=== PATIENT | male | born 1935 | race Caucasian/White ===

== ENCOUNTER 2016-09-07 22:56 | Inpatient (IN) | payer OTHER ==
--- NOTE | 2016-09-08 00:18 | PROVIDER DOCUMENTATION ---
HPI-General Adult - History of Present Illness -Gen Adult Nature of Presenting Problems: Pt comes in with complaint of anxiety. He states that he sees dr foley in [place] and has been given abx treatment x 2 different cycles of abx. He still has complaint of cough and a non specific complaint of anxiety but does not at all appear anxious. <Sol Hernández - Last Filed: 09/08/16 01:32> <Ignacio Lincoln - Last Filed: 09/08/16 02:36> <Frederick Graham - Last Filed: 09/08/16 02:39> - General Chief Complaint: Anxiety Stated Complaint: COUGH Time Seen by Provider: 09/08/16 00:11 Allergies/Adverse Reactions: Patient Allergies Allergy/AdvReac Type Severity Reaction Status Date / Time No Known Allergies Allergy Verified 09/08/16 00:10 Home Medications: Home Medication List Medication Instructions Recorded Confirmed Last Taken Type Diclofenac Sodium 75 mg PO BID 04/29/14 09/08/16 04/29/14 07:30 History Furosemide 40 mg PO DAILY 04/29/14 09/08/16 09/07/16 13:00 History Gabapentin 300 mg PO BID 04/29/14 09/08/16 09/07/16 20:00 History Losartan [Cozaar] 25 mg PO DAILY 04/29/14 09/08/16 09/07/16 09:00 History Metformin E.r. [Glucophage Xr] 500 mg PO BID CC 04/29/14 09/08/16 09/07/16 17: 00 History Omeprazole [Prilosec] 20 mg PO BID 04/29/14 09/08/16 09/07/16 17:00 History Potassium Chloride E.r. [Klor-Con] 2 tab-cap PO DAILY 04/29/14 09/08/16 09:00 History Sitagliptin [Januvia] 50 mg PO DAILY 04/29/14 09/08/16 06/27/15 History Tramadol/APAP [Ultracet 1 each PO Q6H PRN PRN #20 tablet 06/28/15 09/08/16 Unknown Rx 37.5MG/325Mg] Diltiazem HCl [Diltiazem 24Hr Cd] 180 mg PO DAILY 0209/08/16 09/07/16 09: 00 History Furosemide [Lasix] 2 tab PO DAILY 09/08/16 09/08/16 09/07/16 09:00 History Levofloxacin [Levaquin] 500 mg PO DAILY 09/08/16 09/08/16 09/07/16 09:00 History Tramadol [Ultram] 50 mg PO Q8HR 09/08/16 09/08/16 Unknown History Review of Systems - Adult - REVIEW OF SYSTEMS - ADULT Constitutional: reports: no symptoms reported. denies: chills, fever, fatique, night sweats, weight gain Eyes: reports: no symptoms reported. denies: discharge, dry eyes, decreased vision, blurred vision, double vision, eye pain, redness Ears, Nose, Mouth & Throat: reports: no symptoms reported. denies: ear discharge, ear pain, hearing loss, tinnitus, epistaxis, sinus problem, loose teeth, mouth swelling, hoarseness, throat pain, throat swelling Cardiovascular: reports: no symptoms reported. denies: chest pain, edema, heart murmur, palpitations, poor circulation, PND, syncope Respiratory: reports: see HPI, cough. denies: chronic cough, dyspnea on exertion, excessive sputum production, hemoptysis, pleurisy, shortness of breath , wheezing Gastrointestinal: reports: no symptoms reported. denies: abdominal pain, hematemesis, constipation, diarrhea, difficulty swallowing, nausea, poor appetite, rectal bleeding, vomiting Genitourinary: reports: no symptoms reported. denies: dysuria, discharge, frequency, flank pain, hematuria, hesitency, incontinence, urinary retention, urgency Musculoskeletal: reports: no symptoms reported. denies: bone pain, back pain, frequent leg cramps, joint swelling, muscle aches, neck pain Integumentary: reports: no symptoms reported. denies: hives, hair loss, itching , mole changes, nail changes, rash, skin sores/ulcer, skin thickening Neurological: reports: no symptoms reported. denies: ataxia, dizziness/vertigo , headache/migraines, numbness, paresthesia, slurred speech, syncope, tremors Psychiatric: reports: see HPI, anxiety, panic attacks. denies: anti-depressant use, alcohol/drug dependence, depression, insomnia, suicidal thoughts Endocrine: reports: no symptoms reported. denies: change in skin pigment, excessive sweating, goiter, cold intolerance, heat intolerance, increased thirst , polyuria Hematologic/Lymphatic: reports: no symptoms reported. denies: low blood count, prolonged bleeding, swollen lymph nodes, transfusions Allergic/Immunologic: reports: no symptoms reported. denies: see HPI, allergic rhinitis, asthma, eczema, frequent infections, hay fever, hives, positive PPD, urticaria All Other Systems: Reviewed and Negative <Sol Hernández - Last Filed: 09/08/16 01:32> Past History - Adult - PAST MEDICAL HISTORY-ADULT Review of Records: reports: Old Records Reviewed, Nursing Assessment Review, Medications Reviewed, Social history reviewed & non-contributory. Major Childhood Illnesses: reports: denies history Cardiovascular: reports: CHF, HTN Respiratory: reports: denies history Gastrointestinal: reports: diverticulosis, GERD, obstruction Obstetrical/Gynecological: reports: denies history Genitourinary: reports: denies history Musculoskeletal: reports: arthritis Neurological: reports: denies history Endocrine/Immune: reports: Diabetes Other Conditions: reports: denies history - PRIOR SURGERIES/PROCEDURES Surgical/Procedure History: reports: cholecystectomy, hernia repair, other ( colon resection) - PRIOR HOSPITALIZATIONS Prior Hospitalizations: reports: for other non-related - IMMUNIZATION STATUS Childhood Immunizations: See Nurse Assessment Flu Vaccine: See Nurse Assessment - FAMILY HISTORY Family History: reviewed, not pertinent - SOCIAL HISTORY Smoking: denies Substance Use: none/never Alcohol Use Frequency: never Living Situation: family <Sol Hernández - Last Filed: 09/08/16 01:32> Physical Exam-General - PHYSICAL EXAM-ADULT Initial Vital Signs Reviewed: Yes - CONSTITUTIONAL General Appearance: appears well, alert, no apparent distress, anxious (stated) - EYES Eyes: PERRL/EOMI, pink conjunctivae - HEAD, EARS, NOSE, MOUTH & THROAT HENMT: normocephalic/atraumatic, moist mucous membranes, normal ENT inspection - NECK Neck: non-tender, full range of motion, supple - RESPIRATORY Respiratory: chest non-tender, lungs clear, normal breath sounds, no pleuratic chest pain, no respiratory distress, no accessory muscle use - CARDIOVASCULAR Cardiovascular: normal peripheral pulses, regular rate, rhythm. 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 Lincoln reassessed pt and discussed result of pt's chest X- ray and labs and discussed possibility to admit pt, as pt had +3 pitting edema in bilateral lower extremities, +1 in presacrul, and pulmonary edema.) <Frederick Graham - Last Filed: 09/08/16 02:39> Departure - Departure Certified Medical Emergency: Emergent <Sol Hernández - Last Filed: 09/08/16 01:32> - Departure Time of Disposition Order: 02:36 Certified Medical Emergency: Emergent <Ignacio Lincoln - Last Filed: 09/08/16 02:36> <Frederick Graham - Last Filed: 09/08/16 02:39> - Departure DIAGNOSIS: Congestive heart failure Qualifiers: Congestive heart failure type: unspecified congestive heart failure type Congestive heart failure chronicity: acute on chronic Qualified Code(s): I50.9 - Heart failure, unspecified Disposition: ADMITTED INPATIENT 09 Condition: Good Additional Instructions: ED Follow Up Instructions: You have been treated by a care provider in the Emergency Department. These instructions are being provided to you so you can have an understanding of how to care for yourself upon discharge. Upon discharge from the Emergency Department, you are responsible for making arrangements for follow-up care by a physician of your choice. Take all prescribed medications as directed. Return to the Emergency Department immediately for any new or worsening symptoms. You may call the Physician Referral phone number at [phone] to obtain a list of Physicians who are taking new patients. Referrals: Desmond Foley [Primary Care Provider] - Attestation - Physician/ DEBRA Attestation Patient care was provided by Advanced Practice Provider:: Yes Advanced Practice Provider:: Sol Hernández Advanced Practice Provider documentation review:: The Mid-level provider documentation, treatment plan and medical decision making was reviewed by the physician who agrees with all treatment and medical decision making by the P. <Sol Hernández - Last Filed: 09/08/16 01:32> Physician Attestation
[2016-09-08] MEDS ORDERED: XANAX PO ONE ×2 (00:22→01:00)
[2016-09-08] MEDS ORDERED: LASIX IV ONE (01:26)
[2016-09-08 01:42] LABS: MANUAL DIFF NEEDED? NO
[2016-09-08 01:45] LABS: BASO% 0.6 % (0.0-0.8); EOS# 0.07 X1000 (0.0-0.7); EOS% 1.5 % (0.0-10.0); HEMATOCRIT 31.9 % (42.0-52.0); HEMOGLOBIN 9.7 g/dL (14.0-18.0); LYMPH# 0.97 X1000 (1.2-3.4); LYMPH% 20.6 % (20.5-51.1); MCH 23.2 PG (27-31); MCHC 30.4 g/dL (33-37); MCV 76.3 FL (81-99); MONO# 0.55 X1000 (0.11-0.59); MONO% 11.7 % (1.7-9.3); MPV 9.1 FL (7.4-10.4); NEUT% 65.6 % (42.2-75.2); PLT 122 X1000 (130-400); RBC 4.18 XMIL (4.7-6.1)
[2016-09-08 01:54] LABS: INR 1.13; PTT 27.3 Seconds (22.0-36.0)
[2016-09-08 02:02] LABS: AGAP 14; ALBUMIN 3.2 g/dL (3.5-5.0); ALKALINE PHOSPHATASE 101 U/L (32-122); BUN 15 mg/dL (8-22); CALCIUM 8.7 mg/dL (8.8-10.2); CHLORIDE 100 mmol/L (98-107); CK PROFILE 165 U/L (24-204); COSMO 281; GOT 25 U/L (10-34); GPT 18 U/L (10-44); MAGNESIUM 1.5 mg/dL (1.5-2.7); POTASSIUM 4.1 mmol/L (3.5-5.1); SODIUM 140 mmol/L (136-145); TCO2 26 mmol/L (25-35); TOTAL BILIRUBIN 0.77 mg/dL (0.20-1.00)
[2016-09-08 06:08] LABS: URINE CULTURE NEEDED? NO; URINE MICRO REVIEW NEEDED? NO; URINE SOURCE CATH
[2016-09-08] MEDS: NORCO-7.5 PO PRN ×2 (06:13→11:07)
[2016-09-08 06:22] LABS: BILIRUBIN URINE NEGATIVE (NEGATIVE); BLOOD URINE NEGATIVE (NEGATIVE); COLOR YELLOW; GLUCOSE URINE NEGATIVE (NEGATIVE); LEUKOCYTES URINE NEGATIVE (NEGATIVE); NITRITE URINE NEGATIVE (NEGATIVE); PH URINE 7.5; PROTEIN URINE NEGATIVE (NEGATIVE); SP GRAVITY URINE 1.011; TURBIDITY URINE CLEAR (CLEAR); UROBILINOGEN URINE NORMAL (NORMAL)
[2016-09-08 06:26] LABS: UR EPITHELIAL CELLS <10 /HPF (<10); URINE BACTERIA NEGATIVE /HPF; URINE RBC <10 /HPF (<10); URINE WBC <10 /HPF (<10)
[2016-09-08 06:35] LABS: HEMOGLOBIN A1C 5.4 % (4.8-6.0)
[2016-09-08] MEDS ORDERED: ZOFRAN IV PRN (06:52)
[2016-09-08] MEDS ORDERED: TYLENOL PO PRN (06:52)
[2016-09-08] MEDS ORDERED: CARDIZEM CD PO SCH ×3 (09:00→13:15)
[2016-09-08] MEDS ORDERED: LOVENOX SUBQ SCH (09:00)
[2016-09-08 09:18] LABS: CK PROFILE 147 U/L (24-204); IRON SATURATION 9 %; TIBC 295 ug/dL; TOTAL IRON 28 ug/dL (53-167); UNBOUND IRON 267 ug/dL (112-346)
--- NOTE | 2016-09-08 09:42 | Diag Imaging Result Document ---
PROCEDURE NAME: CHEST-1 VIEW - 09/08/2016 AP PORTABLE CHEST, 09/08/2016 AT 0035 HOURS: FINDINGS: The atelectasis previously present in the lingula has resolved. Otherwise, there has been no significant change in the appearance of the chest since 03/22/2015. IMPRESSION: Stable chest.
[2016-09-08] MEDS: LASIX IV SCH ×2 (11:03→20:34)
[2016-09-08] MEDS: NEURONTIN PO SCH ×2 (11:06→20:35)
[2016-09-08] MEDS: PRILOSEC PO SCH ×2 (11:07→20:35)
[2016-09-08] MEDS: COZAAR PO SCH (11:07)
[2016-09-08] MEDS: HUMALOG SUBQ SCH ×3 (11:08→22:15)
[2016-09-08 11:36] LABS: FERRITIN 14 ng/mL (30-400)
[2016-09-08] MEDS ORDERED: MAGNESIUM SULFATE 2 GM/S.W.I. 50 ML IV ONE (13:30)
--- NOTE | 2016-09-08 13:45 | CONSULTATION ---
DATE OF CONSULTATION: 09/08/2016 INDICATION: New onset atrial fibrillation. HISTORY OF PRESENT ILLNESS: Mr. Denson is a 80-year-old male who presented for admission yesterday he says reportedly secondary to an anxiety attack. The patient could not report any other symptoms other than he just gets somewhat agitated and anxious. He had no heart racing. No chest pain. No orthopnea. He has chronic lower extremity edema and appears to have issues with a chronic lower extremity venous ulcer that is currently being treated. He denies any orthopnea, heart racing, palpitations or syncope. He has no bleeding issues. PAST MEDICAL HISTORY: Significant for. 1. Hypertension. 2. Diabetes. 3. Chronic venous ulcers. SOCIAL HISTORY: No current tobacco use. FAMILY HISTORY: Significant for hypertension. REVIEW OF SYSTEMS: A 10-system review of systems is negative except for those things mentioned in HPI. PHYSICAL EXAMINATION: Vital signs: He is afebrile. His heart rate is 78, blood pressure 129/58. His heart rates have been elevated since admission primarily in the 100s-120s. Generally: No acute distress. HEENT: Oropharynx is moist. Normal dentition. Eye examination shows pink conjunctivae. White sclerae. Neck: Examination shows no obvious thyromegaly or thyroid tenderness. Cardiovascular: He is in irregularly irregular tachycardic rhythm. Currently he is going at a rate of around 140. He has 1 to 2+ bilateral lower extremity with chronic venous stasis changes and a healing venous stasis ulcer on the right lower medial bergman and evidence for a healed venous stasis ulcer on the left medial lower bergman. Chest: Clear bilaterally. No increased work of breathing. Abdomen: Soft, nontender, nondistended. No obvious organomegaly. Skin Exam: Warm and dry throughout any rashes. Neurological: Moving all extremities well. Cranial nerves 2-12 are intact without any sensation deficits. Psychiatric: Alert and oriented, pleasant. Normal mood and affect. PERTINENT DATA: His EKG today showed what appears to be atrial flutter, rate of 108 beats per minute. His chest x-ray demonstrated no evidence of any pulmonary edema. Unremarkable study. Laboratory shows a white count of 4.7, hematocrit 31.9, platelet count is 122,000. This has been relatively stable as he had platelet counts in the 120s in April 2014. His INR is 1.1. His sodium is 140, potassium 4.1, his BUN is 15, creatinine is 1. His cardiac enzymes are negative times multiple sets. His proBNP is 1182. He did not have a TSH checked. ASSESSMENT: New onset atrial flutter with evidence for heart failure based on his proBNP. PLAN: We will continue him on his current diltiazem. I will discontinue his aspirin that he was previously on. In addition, I will discontinue his enoxaparin. We will start him on apixaban 5 mg b.i.d. Risks, benefits and alternatives to anticoagulation were discussed with the patient. He agrees to proceed. We will plan for KARIE cardioversion in the morning. Risks, benefits, and alternatives to procedure were explained and he agreed to proceed. If he has unremarkable cardioversion then he can likely be discharged later on today or later on tomorrow. I would continue to work on his rate control. I will escalate his diltiazem to 240 mg daily. Consideration for pipe changer to a beta-tatum if his EF on the transesophageal echocardiogram is reduced.
--- NOTE | 2016-09-08 14:09 | ECHO REPORT ---
ORDER DATE: 09/08/2016 INDICATION FOR THE STUDY: CHF. Edema. FINDINGS: 1. Right atrium is moderately enlarged at 5.3 cm. 2. There is mild tricuspid regurgitation. RV systolic pressure of 43. 3. Normal RV size and systolic function. 4. Trace pulmonic insufficiency. 5. Mild left atrial enlargement at 4.8 cm. 6. There is no evidence of mitral prolapse. No significant mitral regurgitation. 7. Normal LV size, end-diastolic dimension of 3.9. Moderate left ventricular hypertrophy with a posterior and interventricular septal wall thickness 1.4 cm each. Normal LV systolic function. The estimated EF is greater than 55%. This is an extremely difficult study with poor visualization of the endocardial borders. 8. Aortic valve appears calcified. There is no evidence of restriction in motion via the aortic valve area or via gradients but this is very difficult imaging. May consider re-study in the future. Consideration for possible transesophageal echocardiogram to better assess the aortic valve. 9. Aorta appears normal in visualized segments. 10. No pericardial effusion identified.
--- NOTE | 2016-09-08 15:47 | HISTORY AND PHYSICAL ---
PRIMARY CARE PROVIDER: Dr. Otoole. CHIEF COMPLAINT: Anxiety attack and lower extremity edema. HISTORY OF PRESENT ILLNESS: Mr. Denson is an 80-year-old male with a past medical history of diabetes mellitus, hypertension, chronic venous insufficiency, iron deficiency anemia, and a reported irregular hear beat; the patient does not know what kind. The patient presented to the ER tonight stating that he was having an anxiety attack. Once the patient was further assessed, he was found to be having some shortness of breath and did have bilateral lower extremity pitting edema. The patient reports that he has recently been treated with 2 different rounds of antibiotics for reported upper respiratory infection and does report a productive cough with a clear to slight grayish colored sputum. The patient's primary care physician is Dr. Otoole in [place]. He states that he does not have a survey statistician and does not have any known history of congestive heart failure, though the patient is supposed to take 80 mg of Lasix p.o. daily. Upon further evaluation, we did discover that the patient reported that he has not taken his medications for the past 3 days. He also reports that he is being seen by home health for wound care for a right lower extremity diabetic wound. He denies, at this time, any dizziness, headaches, chest pain, abdominal pain, nausea, vomiting, diarrhea, or constipation. He reports that his last bowel movement was 1 day ago. He denies any melena. He also denies any dysuria, urinary frequency, or any reduction in his urinary output. The patient does report that he has had increased leg swelling over the past few days as well. Upon evaluation in the ER, the patient was found to have 2+ pitting edema in bilateral lower extremities. Chest x-ray did show increased pulmonary vascular condition. The patient's proBNP was elevated at 1182. The patient was given 40 mg Lasix IV and did have urine output so far of 2500 mL. EKG was performed in the ER, which did show the patient was in atrial flutter at a rate of around 111. I did ask the patient if he has a known history of this, though he states that he thinks someone has told him he has had an irregular heart rate in the past. The patient does take Cardizem on his home medication list. I did look back at previous EKGs and I have no EKGs showing atrial flutter in the past. At this time, we are not sure if this is of new onset or not. At this time, we will admit the patient for further treatment and evaluation of his congestive heart failure, as well as atrial flutter. We will obtain a cardiology consult as well. REVIEW OF SYSTEMS: A 14-point review of systems was conducted with the patient and all were negative except for pertinent positives mentioned in the above HPI. PAST MEDICAL HISTORY: 1. Diabetes mellitus type 2. 2. Hypertension. 3. Chronic venous insufficiency. 4. Iron deficiency anemia. PAST SURGICAL HISTORY: 1. Exploratory laparotomy with lysis of adhesions. 2. Hernia repair 3. Cholecystectomy FAMILY HISTORY: Positive for coronary artery disease in his father, who is . SOCIAL HISTORY: The patient denies any past or present tobacco use, though does report some alcohol use in his distant past. The patient reports that he currently lives alone at this time, though does have a son that lives close by that helps with his care. ALLERGIES: The patient reports no known allergies. HOME MEDICATIONS: 1. Diclofenac 75 mg p.o. b.i.d. 2. Diltiazem 24 hour controlled dose, 180 mg p.o. daily. 3. Lasix 80 mg p.o. daily. 4. Gabapentin 300 mg p.o. b.i.d. 5. Levaquin 500 mg p.o. daily. 6. Cozaar 25 mg p.o. daily. 7. Metformin extended release 500 mg p.o. b.i.d.. 8. Omeprazole 20 mg p.o. b.i.d. 9. Potassium chloride extended release 2 tablets p.o. daily. 10.Januvia 50 mg p.o. daily. 11.Tramadol 50 mg p.o. q.8 hours. DIAGNOSTIC DATA AND LABORATORY RESULTS: White blood cell count 4.7, red blood cell count 4.1, hemoglobin 9.7, hematocrit 31.9, platelet count 122. PT 12, INR 1.13, PTT 27.3, sodium 140, potassium 4.1, chloride 100, bicarb 26, BUN 15, creatinine 1.0. GFR greater than 60, glucose 107, hemoglobin A1c 5.4, calcium 8.7, magnesium 1.5. Liver function tests are within normal limits. CK 155, troponin 0.024, proBNP 1182. Urinalysis was obtained via cath, was within normal limits. No protein, ketones, blood, nitrites, leukocytes, white blood cells, or bacteria noted. EKG showed atrial flutter at a rate of 111 to 117. Chest x-ray showed increased pulmonary vascular condition, though we are awaiting official radiology read. PHYSICAL EXAMINATION: VITAL SIGNS: Temperature 98.3, heart rate 111, respirations 20, blood pressure 151/83, oxygen saturation is 95% on room air. GENERAL: Mr. Denson is an elderly, obese, male, who is resting in the ER stretcher. He is in no acute distress. He was awake, alert, and able to answer all questions appropriately, though is a poor historian related to his past medical history. HEENT: Head is atraumatic, normocephalic. Pupils are equal, round, reactive to light, 3 mm bilaterally, and brisk. Conjunctivae were slightly pale. Oral mucosa is moist. Oropharynx is clear. NECK: Supple. Trachea midline. No JVD noted. No carotid bruits noted upon auscultation bilaterally. CARDIOVASCULAR: The patient has normal S1, S2. No murmurs, gallops or rubs appreciated. Regular rate and rhythm. PULMONARY: The patient has symmetrical chest expansion bilaterally. Lung sounds are clear bilaterally in full forbes. ABDOMEN: Soft, nontender. The patient does have a protuberant abdomen noted. Bowel sounds are present in all 4 quadrants, normoactive. GENITOURINARY: The patient does have a Johnson catheter in place at this time and does have clear yellow urine noted to the Johnson drainage bag. EXTREMITIES: The patient has 3+ pitting edema noted in bilateral lower extremities from approximately just above the knee down. Pedal pulses are difficult to palpate due to the patient's swelling, though I was able to obtain adequate pulses with a venous Doppler in the posterior tibialis, though I was not able to obtain dorsalis pedis. The patient's capillary refill is less than 3. INTEGUMENTARY: The patient's skin is pink, warm, dry, and intact. He does have a diabetic wound noted to his anterior right lower extremity that is approximately half dollar in size and does not appear to have any necrotic tissue noted. There is an area of erythema approximately 2 inches in diameter around this, though no drainage noted at this time. NEUROLOGIC: Patient alert and oriented to person, place, time and situation. Cranial nerves II through XII are grossly intact. ASSESSMENT AND PLAN: 1. Congestive heart failure. 2. Atrial flutter. For 1 and 2, we have obtained a Cardiology consult with Dr. Camacho and we will await his evaluation and further recommendations. We will continue the patient's Cardizem, as well as his Cozaar. We will do Lasix IV 40 mg b.i.d. We will do a series of cardiac enzymes and we will continue to follow 3. Hypertension. We will continue the patient's Cozaar and continue following. 4. Diabetes mellitus type 2. We will continue the patient on a sliding scale insulin and continue to follow. 5. Anemia. The patient does have a history of iron deficiency anemia. We have ordered an anemia profile. Will await the results and continue to follow. 6. Diabetic wound, right lower extremity. We will place a consult with the wound care nurse and will continue to follow as well. 7. The patient will be placed on medical floor with Telemetry. He will have vital signs q.4 h. DVT prophylaxis will be provided with Lovenox 40 mg subcutaneous q.24. GI prophylaxis with omeprazole. We will do daily weights. Do strict intake and output q.8. Further orders and recommendations pending hospital course, diagnostic studies, and physician evaluation. Dictated by JORGE Broussard for Gary Pettit MD
[2016-09-08] MEDS ORDERED: VENOFER 300 MG in NS 150 ML IV ONE (18:00)
[2016-09-08] MEDS: KEFZOL 1 GM/D5W 50 ML IV SCH (19:41)
[2016-09-08] MEDS: ELIQUIS PO SCH (20:35)
[2016-09-08] MEDS: BAZA ANTIFUNGAL CREAM TOP SCH (20:36)
--- NOTE | 2016-09-08 21:33 | PROGRESS NOTE ---
DATE: 09/08/2016 SUBJECTIVE: Today Mr. Denson refers to be doing okay. He got admitted early this morning because of some vague symptoms. Sometimes he has been having some fatigability, anxiety, chest palpitations, and easily winded. OBJECTIVE: Vital signs: Blood pressure is 129/69, pulse of 94, respirations 18, temperature 98.2 degrees. General: Mr. Denson is an 80-year-old, morbidly obese, male. He is in bed. He did not seem to be in any remarkable distress. HEENT: Mucosa is pink and moist. Anicteric. Acyanotic. Neck: Supple. Chest: Good air entry bilaterally. No crepitations. No rhonchi. Cardiovascular: Tachycardic but no apparent murmur. No rubs. No gallops. Abdomen: Distended, nontender. There is an infraumbilical surgical scar. COLLEGE SCOUTING COORDINATOR: Patient is alert and oriented x4. There is no focal neurological deficit. Extremities: There is some distal stasis dermatitis. The right leg has a venous ulcer with some surrounding erythematous changes. Unsure if there is superimposed cellulitis. LABORATORY DATA: WBC is 4.75, hemoglobin is 9.7, platelet count of 122,000. Sodium is 140, potassium is 4.1, chloride is 100, bicarb is 26, glucose is 107. EKG did show narrow complex tachyarrhythmia, questionable for atrial flutter. Echocardiogram has shown normal left ventricular size. There is some left ventricular hypertrophy. Ejection fraction of 55%. A chest x-ray which was done today showed no significant change. No acute cardiopulmonary disease. ASSESSMENT AND PLAN: 1. Palpitations with general anxiety. So far EKG shows and narrow complex tachyarrhythmia. This has been reviewed by cardiology and I think they are calling it atrial flutter. The patient has been started on rate control medications. I understand he is going to have an echocardiogram tomorrow. 2. Iron deficiency anemia. Patient has a ferritin level of 14. According to him, he has history of iron deficiency. I am not quite sure if he is having any chronic GI bleed. I am concerned. The patient is going to be started on anticoagulation. I will do fecal occult blood testing. If that is positive I would prefer we consult GI to work up the GI tract before we submit the patient to my anticoagulation. For now I will give the patient some iron infusion. Patient has a deficit of 1,435 of elemental iron so I will give him 300 mg of IV iron on 3 different occasions to at least replenish the deficit. 3. Chronic venous insufficiency with right leg venous ulcer. There is possible cellulitis. I will start the patient on Keflex IV for now and will consult the wound care nurse to assist the wound care whilst the patient is here. 4. Morbid obesity. Patient has been advised. 5. Diastolic heart failure. Likely due to tachyarrhythmias. I think this will improve once the rate is controlled. 6. Concentric hypertrophic cardiomyopathy. Likely due to underlying hypertension versus just morbid obesity. 7. Diabetic mellitus with A1c of 5.4, indicative of being very well controlled. Patient is on metformin and Januvia which we plan to continue once he is ready to be discharged.
[2016-09-09] MEDS ORDERED: BLISTEX MEDICATED BERRY LIP BALM TOP PRN (03:17)
[2016-09-09] MEDS: KEFZOL 1 GM/D5W 50 ML IV SCH ×2 (04:06→14:04)
[2016-09-09 06:12] LABS: MANUAL DIFF NEEDED? NO
[2016-09-09 06:33] LABS: BASO% 0.7 % (0.0-0.8); EOS# 0.12 X1000 (0.0-0.7); EOS% 1.6 % (0.0-10.0); HEMATOCRIT 35.2 % (42.0-52.0); HEMOGLOBIN 10.8 g/dL (14.0-18.0); IMM GRAN# 0.05 X1000 (0.0-0.04); IMM GRAN% 0.7 % (0.0-0.5); LYMPH# 1.34 X1000 (1.2-3.4); LYMPH% 17.9 % (20.5-51.1); MCH 23.4 PG (27-31); MCHC 30.7 g/dL (33-37); MCV 76.4 FL (81-99); MONO# 0.75 X1000 (0.11-0.59); MPV 9.8 FL (7.4-10.4); NEUT% 69.1 % (42.2-75.2); PLT 150 X1000 (130-400); RBC 4.61 XMIL (4.7-6.1)
[2016-09-09 06:47] LABS: CALCIUM 8.8 mg/dL (8.8-10.2); MAGNESIUM 1.8 mg/dL (1.5-2.7); POTASSIUM 3.7 mmol/L (3.5-5.1)
[2016-09-09] MEDS: HUMALOG SUBQ SCH ×3 (06:49→17:16)
[2016-09-09] MEDS: PRILOSEC PO SCH (06:50)
[2016-09-09] MEDS ORDERED: VENOFER 300 MG in NS 150 ML IV ONE (07:00)
--- NOTE | 2016-09-09 07:26 | EKG Report ---
Test Performed on : 09/08/2016 05:33:11 AM Test Reason : CHF Blood Pressure : / mmHG Vent. Rate : 108 BPM Atrial Rate : 108 BPM P-R Int : 000 ms QRS Dur : 088 ms QT Int : 324 ms P-R-T Axes : 000 016 043 degrees QTc Int : 434 ms Accelerated Junctional rhythm. Septal infarct , age undetermined T wave abnormality, consider inferior ischemia Abnormal ECG No previous ECGs available Unconfirmed Result
[2016-09-09 07:40] VITALS: BP 139/65
[2016-09-09] MEDS ORDERED: DIFLUCAN PO SCH (09:00)
[2016-09-09] MEDS: ELIQUIS PO SCH (09:16)
[2016-09-09] MEDS: COZAAR PO SCH (09:16)
[2016-09-09] MEDS: NEURONTIN PO SCH (09:16)
[2016-09-09] MEDS: BAZA ANTIFUNGAL CREAM TOP SCH (09:34)
[2016-09-09] MEDS ORDERED: XYLOCAINE 2% VISCOUS ONE (11:47)
[2016-09-09] MEDS ORDERED: SODIUM CHLORIDE 0.9% 10 ML ONE (11:47)
[2016-09-09] MEDS ORDERED: XYLOCAINE 4% TOPICAL SOLUTION ONE (11:47)
[2016-09-09] MEDS ORDERED: HURRICAINE SPRAY (DOSE) ONE (11:47)
[2016-09-09] MEDS ORDERED: CLAVE TWINSITE 32 IN 11959 ONE (11:48)
[2016-09-09] MEDS ORDERED: CLAVE ANES SET 100 IN 11965 ONE (11:48)
[2016-09-09] MEDS ORDERED: NS 1,000 ML ONE (11:48)
[2016-09-09] MEDS ORDERED: DIPRIVAN 1% ONE (12:55)
[2016-09-09] MEDS ORDERED: XYLOCAINE-MPF 2% ONE (13:17)
--- NOTE | 2016-09-09 14:34 | EKG Report ---
Test Performed on : 09/09/2016 10:09:05 AM Test Reason : afib Blood Pressure : / mmHG Vent. Rate : 117 BPM Atrial Rate : 117 BPM P-R Int : 154 ms QRS Dur : 082 ms QT Int : 352 ms P-R-T Axes : 063 002 056 degrees QTc Int : 491 ms Atrial flutter. Septal infarct (cited on or before 08-AUG-2016) Abnormal ECG When compared with ECG of 08-SEP-2016 05:33, Nonspecific T wave abnormality, improved in Lateral leads Confirmed by Maximo Whittaker MD ([id number]) on 09/10/2016 9:42:54 PM
--- NOTE | 2016-09-09 14:35 | EKG Report ---
Test Performed on : 09/09/2016 1:12:11 PM Test Reason : s/p doc cardioversion Blood Pressure : / mmHG Vent. Rate : 095 BPM Atrial Rate : 095 BPM P-R Int : 224 ms QRS Dur : 092 ms QT Int : 358 ms P-R-T Axes : 090 017 070 degrees QTc Int : 449 ms Sinus rhythm. with 1st degree AV block. Otherwise normal ECG When compared with ECG of 09-SEP-2016 10:09, (Unconfirmed) NM interval has increased Criteria for Septal infarct are no longer present Sinus rhythm. has replaced Atrial flutter. Confirmed by Maximo Whittaker MD ([id number]) on 09/10/2016 9:46:19 PM
--- NOTE | 2016-09-09 15:28 | PROGRESS NOTE ---
DATE: 09/09/2016 SUBJECTIVE: Today Mr. Denson referred to be doing okay. Did not have any remarkable complaints. Was just waiting for his KARIE to be done. OBJECTIVE: Vital signs: Blood pressure is 139/65, pulse of 75, respiration is 19, temperature is 98.7 degrees. General: Mr. Denson is an 80-year-old male morbidly obese with BMI of 38.8, was in bed. Did not seem to be in any distress. HEENT: Mucosa is pink and moist. Anicteric. Acyanotic. Neck: Supple. Chest: Good air entry bilateral. Cardiovascular: Tachycardic but no murmurs, no rubs. Abdomen: Distended but nontender. There is an old infraumbilical surgical scar. OFFSET PROOF PRESS OPERATOR: Patient is alert and oriented x4. There is no focal neurological deficit. Extremities: There is distal bilateral stasis dermatitis. The right leg has venous ulcer with surrounding erythematous changes suspicious for superimposed cellulitis. LABORATORY DATA: WBC 7.50, hemoglobin is 10.8, platelet count of 150,000. Chemistry reviewed. Creatinine is slightly bumped up to 1.3. TSH is normal. ASSESSMENT: 1. Palpitation with general anxiety. 2. Atrial flutter. Patient is status post electrical cardioversion. I just communicated with the deposition reporter and from their standpoint patient should be able to go home later this afternoon and follow up with them. 3. Iron deficiency anemia. Patient is status post 2 iron infusions. He should be able to go home with oral iron supplement. I spoke with our GI guys over here specifically with Dr. German and he is willing to see the patient on outpatient basis for GI workup. 4. Chronic venous insufficiency with right leg venous ulcer possible superimposed cellulitis. Patient is on Keflex intravenous. Will switch this to p.o. and will continue wound care. 5. Morbid obesity. Patient has been advised. 6. Diastolic heart failure likely due to tachyarrhythmias. Echocardiogram shows a normal ejection fraction. 7. Diabetes mellitus with A1c of 5.4. Patient is very well controlled. 8. Acute kidney injury. Creatinine bumped up slightly. I think this is probably due to the intravenous Lasix. Will discontinue that. GENERAL PLAN: Patient is doing a whole lot better. He just had his cardioversion for the atrial flutter and understand he is now in sinus rhythm. Cardiology wants us to observe him couple hours and if he is stable we can discharge him later today for patient to follow up with them. Patient will also be advised to follow with GI for the severe iron deficiency anemia for GI workup.
--- NOTE | 2016-09-09 15:31 | ECHO REPORT ---
ORDER DATE: 09/09/2016 PROCEDURE: KARIE. INDICATION: Atrial fibrillation. TECHNIQUE: The patient was brought to the new catheterization laboratory in a fasting state. Informed consent was obtained. He was prepped in the usual fashion. He was anesthetized with Hurricaine spray and viscous lidocaine. Transesophageal echocardiogram probe was passed without difficulty. Images were obtained in multiple planes. At conclusion of procedure, the KARIE probe was removed and he tolerated the procedure well. FINDINGS: 1. The right atrium appears normal in size. There is evidence for shunting across the interatrial septum via injection of agitated saline contrast as well as on color Doppler. 2. Mild tricuspid regurgitation. 3. Normal RV size and systolic function. 4. Mild pulmonic insufficiency. 5. No evidence of clot seen in the left atrium or left atrial appendage. There was good color flow seen throughout the left atrial appendage and pulse wave velocity down the left atrial appendage was greater than 50 cm/sec. 6. No mitral valve prolapse. Mild mitral regurgitation. 7. Normal LV size with no evidence of left ventricular hypertrophy. The estimated EF is around 60% with normal wall motion. 8. The aortic valve appears to open well. There is some sclerosis and calcification of the valve leaflets, but overall no evidence of stenosis. There is trace aortic insufficiency. 9. There is mild atherosclerosis seen in the descending thoracic aorta. 10. No pericardial effusion seen.
--- NOTE | 2016-09-09 15:38 | CARDIAC CATH REPORT ---
PROCEDURE NAME: - INDICATION: Atrial fibrillation. FINDINGS: Patient was brought to the catheterization laboratory. KARIE was performed appropriately. After conclusion of no clot he was ensured to be sedated. Defibrillator was charged to 150 joules and 1 shock was delivered in synchronized fashion converting the patient over to sinus rhythm. He tolerated the procedure well without any complications.
[2016-09-09] MEDS ORDERED: FERROUS SULFATE PO SCH (21:00)
[2016-09-09] MEDS ORDERED: KEFLEX PO SCH (21:00)
--- NOTE | 2016-09-10 10:45 | DISCHARGE SUMMARY ---
ADMISSION DATE: 09/08/2016 DISCHARGE DATE: 09/09/2016 CONSULTATION: Dr. Shaun Camacho with cardiology. PERTINENT PROCEDURES: 1. KARIE, DC cardioversion that was successful. 2. Echocardiogram that showed an EF of 55%. DISCHARGE DIAGNOSES: 1. Atrial flutter, status post successful transesophageal echocardiogram, direct current cardioversion with an escalation of his Cardizem. The patient has been placed on anticoagulation as well. 2. Iron deficiency anemia. Patient was given an iron infusion. 3. Chronic venous stasis with a right leg venous ulcer. He was started on antibiotics. We will continue with oral antibiotics. 4. Morbid obesity. Patient has been counseled on diet and exercise. 5. Diastolic heart failure secondary to atrial flutter. Patient was successfully direct current cardioverted. His diltiazem has been increased as well as, possibly down the line, adding a beta tatum. 6. Concentric hypertrophic cardiomyopathy, likely due to underlying hypertension versus his morbid obesity. 7. Diabetes mellitus with a hemoglobin A1c of 5.4. Continue on metformin and Januvia. PHYSICAL EXAMINATION: Vital Signs: At the time of discharge, temperature is 98.7 degrees, heart rate 75, respirations 18, blood pressure is 139/65, O2 is 98% on room air. HOSPITAL COURSE: The patient will be discharged later this afternoon since he is recently back from his cardioversion. He will be reassessed by Dr. Mueller secondary to being under sedation for his procedure. Discharge diet will be healthy heart. Discharge medications will be as per Dr. Mueller. Please see MAR. FOLLOWUP: Patient is being discharged home. He will follow up with his primary care physician, Dr. Desmond Otoole, as well as his primary machine splitter. The patient already has home health services and has a walker and medication coverage. He is independent in personal needs. Discharge time greater than 30 minutes. Dictated by JORGE Milligan for Dimitry Mueller MD
--- NOTE | 2016-09-10 13:40 | DISCHARGE SUMMARY ---
ADMISSION DATE: 09/08/2016 DISCHARGE DATE: 09/09/2016 DISPOSITION: Home. FOLLOWUP: 1. Dr. Desmond Otoole. 2. Dr. Shaun Camacho. 3. Dr. Tanika Vega. CONSULTATION DURING THIS ADMISSION: Cardiology was consulted. Patient was seen by Dr. Shaun Camacho. INVASIVE PROCEDURES DONE DURING THIS ADMISSION: A transesophageal echocardiogram was done by Dr. Camacho today. IMAGING STUDIES OF SIGNIFICANCE: Chest x-ray was done on presentation which was unremarkable. An echocardiogram was done which showed concentric hypertrophic cardiomyopathy. Ejection fraction was 55%. ADMISSION DIAGNOSES: 1. Congestive heart failure. 2. Atrial fibrillation. 3. Hypertension. 4. Diabetes. DISCHARGE DIAGNOSES: 1. Palpitations with anxiety. 2. Narrow complex tachyarrhythmia (atrial flutter). 3. Iron deficiency anemia. 4. Chronic venous insufficiency with right leg venous ulcer with superimposed cellulitis. 5. Obesity with body mass index of 38.8. 6. Diastolic heart failure likely due to the tachyarrhythmias. 7. Concentric hypertrophic cardiomyopathy. 8. Diabetes mellitus with A1c of 5.4. DISCHARGE MEDICATIONS: 1. Sitagliptin 50 mg daily. 2. Losartan 25 mg daily. 3. Metformin 500 b.i.d. 4. Gabapentin 300 b.i.d. 5. Apixaban 5 mg b.i.d. 6. Diltiazem 240 daily. 7. Iron sulfate 325 p.o. b.i.d. 8. Fluconazole 100 mg daily. 9. Cephalexin 500 p.o. q.12. PRESENTING COMPLAINTS: Anxiety attack and lower extremity edema. HISTORY OF PRESENTING COMPLAINTS: Mr. Denson is an 80-year-old male who presented to the emergency department because of on-and-off anxiety attacks. Upon presentation, patient was found to be in some tachyarrhythmic rhythm on the EKG. Cardiology evaluated, was found to be atrial flutter with 2:1 block. Patient was admitted for further evaluation. HOSPITAL COURSE: The patient did pretty well during the hospital stay. Was seen by Cardiology. A decision was made for a KARIE with cardioversion, with which patient did very well. The rhythm was converted to sinus and was rate controlled. Patient was started on anticoagulation. We also found during the hospital stay that his iron levels were remarkably low, with ferritin of 14. He was given 2 units of iron infusion and he refers to feeling a whole lot better. He is going to be going home on iron supplements. An occult blood was never done despite being ordered. This was because the patient did not have any bowel movement. In any case, the patient did not show any obvious remarkable GI bleed. Hemoglobin and hematocrit were stable. He was therefore referred to see Dr. Vega on an outpatient basis for GI workup for the iron deficiency anemia. At the time of discharge, the patient refers to be doing okay. Vitals are stable. Blood pressure is 139/65, pulse of 75, respirations 18, temperature 98.7 degrees. Physical examination is unremarkable. Laboratory work has also been reviewed, with nothing of concern. The patient is going to be discharged. Disposition is home. ACTIVITY: As tolerated. TIME SPENT FOR DISCHARGE: 36 minutes.
== END 2016-09-09 18:28 | disposition home health service (06) | DRG 308 ==
LOC: ED 22:56 → 4N 09-08 06:40
PROVIDERS: ATTEND Internal Medicine
PROC: B24BZZ4 Ultrasonography of Heart with Aorta, Transesophageal (ICD-10-PCS; principal; 2016-09-09)
PROC: 5A2204Z Restoration of Cardiac Rhythm, Single (ICD-10-PCS; 2016-09-09)
DX: I48.92 Unspecified atrial flutter (principal); I50.33 Acute on chronic diastolic (congestive) heart failure; N17.9 Acute kidney failure, unspecified; L97.919 Non-pressure chronic ulcer of unspecified part of right lower leg with unspecified severity; E11.622 Type 2 diabetes mellitus with other skin ulcer; I42.2 Other hypertrophic cardiomyopathy; L03.115 Cellulitis of right lower limb; T50.1X5A Adverse effect of loop [high-ceiling] diuretics, initial encounter; I11.0 Hypertensive heart disease with heart failure; E66.01 Morbid (severe) obesity due to excess calories; D50.9 Iron deficiency anemia, unspecified; I87.2 Venous insufficiency (chronic) (peripheral); F41.1 Generalized anxiety disorder; Z91.14 Patient's other noncompliance with medication regimen; Z79.899 Other long term (current) drug therapy; Z82.49 Family history of ischemic heart disease and other diseases of the circulatory system; Z79.84 Long term (current) use of oral hypoglycemic drugs; Z68.38 Body mass index [BMI] 38.0-38.9, adult
CPT/HCPCS: 71010; 80048; 80053; 81001; 82550; 82607; 82728; 82746; 82948; 83036; 83540; 83550; 83735; 83880; 84443; 84484; 85025; 85610; 85730; 92960; 93005; 93010; 93306; 93312; 94761; J0690; J1650; J1756; J1940; J3475; J7030

== ENCOUNTER 2016-12-18 20:22 | Inpatient (IN) ==
--- NOTE | 2016-12-18 20:40 | Diag Imaging Result Doc PS360 ---
EXAM: HEAD W/O CONTRAST HISTORY: stroke like symptoms TECHNIQUE: CT of the head without contrast with dose reduction (clarity.) COMMENT: There is mucosal thickening in the right sphenoid sinus which was not present on 06/28/2015. There is no evidence of intracranial mass effect bleed or abnormal extra-axial fluid collection. There is calcification in the left globus pallidus. The appearance of the brain has not changed significantly since the previous study. IMPRESSION: Right sphenoid sinusitis. No evidence of acute intracranial disease. Electronically signed by Miguel Ryder 12/18/2016 8:38 PM
--- NOTE | 2016-12-18 20:47 | PROVIDER DOCUMENTATION ---
HPI-General Adult - General Chief Complaint: Stroke-Like Symptoms Stated Complaint: unresponsive Time Seen by Provider: 12/18/16 20:25 Source: EMS Allergies/Adverse Reactions: Patient Allergies Allergy/AdvReac Type Severity Reaction Status Date / Time No Known Allergies Allergy Verified 09/08/16 00:10 Home Medications: Home Medication List Medication Instructions Recorded Confirmed Last Taken Type Gabapentin 300 mg PO BID 04/29/14 12/18/16 12/18/16 08:00 History Losartan [Cozaar] 25 mg PO DAILY 04/29/14 12/18/16 12/18/16 08:00 History Metformin E.r. [Glucophage Xr] 500 mg PO BID CC 04/29/14 12/18/16 12/18/16 08: 00 History Omeprazole [Prilosec] 20 mg PO BID 04/29/14 12/18/16 12/18/16 08:00 History Potassium Chloride E.r. [Klor-Con] 2 tab-cap PO DAILY 04/29/14 12/18/16 08:00 History Sitagliptin [Januvia] 50 mg PO DAILY 04/29/14 12/18/16 12/18/16 08:00 History Furosemide [Lasix] 2 tab PO AC 09/08/16 12/18/16 12/18/16 08:00 History Diltiazem C.d. [Cardizem Cd] 240 mg PO DAILY #60 capsule 09/09/16 12/18/1612/18 08:00 Rx Aspirin [Aspirin EC] 81 mg PO BID 12/10/16 12/18/16 12/18/16 08:00 History Diclofenac Sodium 50 mg PO BID 12/18/16 12/18/16 12/18/16 08:00 History - History of Present Illness -Gen Adult Nature of Presenting Problems: Pt has a hx of DM and CHF. He went to eat today with his sister and returned home at 230. That was the last time anyone saw him until 6pm when his son came over and found him still in his truck with his seat belt on and the patient was unresponsive. The son called EMS. They check his BS and it was 168. The patient reportedly appeared drowsy according to the sister per the son. On interview he responded some to verbal command but did not reflex to painful stimulus. He did have a gag reflex and pupils were equal, round, and reactive to light. Review of Systems - Adult - REVIEW OF SYSTEMS - ADULT ROS:: unobtainable per condition Constitutional: reports: no symptoms reported Eyes: reports: no symptoms reported Ears, Nose, Mouth & Throat: reports: no symptoms reported Cardiovascular: reports: no symptoms reported Respiratory: reports: no symptoms reported Gastrointestinal: reports: no symptoms reported Genitourinary: reports: no symptoms reported Musculoskeletal: reports: no symptoms reported Integumentary: reports: no symptoms reported Neurological: reports: no symptoms reported Psychiatric: reports: no symptoms reported Endocrine: reports: no symptoms reported Hematologic/Lymphatic: reports: no symptoms reported Allergic/Immunologic: reports: no symptoms reported All Other Systems: Reviewed and Negative Past History - Adult - PAST MEDICAL HISTORY-ADULT Review of Records: reports: Old Records Reviewed, Nursing Assessment Review, Medications Reviewed, Social history reviewed & non-contributory. Major Childhood Illnesses: reports: denies history Cardiovascular: reports: CHF, HTN Respiratory: reports: denies history Gastrointestinal: reports: diverticulosis, GERD, obstruction Obstetrical/Gynecological: reports: denies history Genitourinary: reports: denies history Musculoskeletal: reports: arthritis Neurological: reports: denies history Endocrine/Immune: reports: Diabetes Other Conditions: reports: denies history - PRIOR SURGERIES/PROCEDURES Surgical/Procedure History: reports: cholecystectomy, hernia repair, other ( colon resection, recent right leg surgery) - PRIOR HOSPITALIZATIONS Prior Hospitalizations: reports: for other non-related - IMMUNIZATION STATUS Childhood Immunizations: See Nurse Assessment Flu Vaccine: See Nurse Assessment - FAMILY HISTORY Family History: reviewed, not pertinent - SOCIAL HISTORY Smoking: denies Substance Use: none/never Alcohol Use Frequency: never Living Situation: alone Physical Exam-General - PHYSICAL EXAM-ADULT Initial Vital Signs Reviewed: Yes - CONSTITUTIONAL General Appearance: no apparent distress, obese, obtunded - EYES Eyes: PERRL/EOMI, pink conjunctivae - HEAD, EARS, NOSE, MOUTH & THROAT HENMT: normocephalic/atraumatic, moist mucous membranes, normal ENT inspection, TMs normal - NECK Neck: non-tender, full range of motion, supple - RESPIRATORY Respiratory: chest non-tender, lungs clear, decreased breath sounds - CARDIOVASCULAR Cardiovascular: normal peripheral pulses, regular rate, rhythm - GASTROINTESTINAL (ABDOMEN) Abdominal Exam: normal bowel sounds, non tender, soft, no organomegaly, no pulsatile mass - MUSCULOSKELETAL Extremity: pedal edema, other (flaccid) Peripheral Pulses: dorsalis-pedis (R): 1+, dorsalis-pedis (L): 1+ - SKIN Integumentary: normal color, normal turgor, warm/dry, other (lle ulcer) - NEUROLOGIC Neurologic: other (obtunded) - PSYCHIATRIC Psych/Mental Status: other (obtunded) Progress - PLAN OF CARE/RESULTS Progress/Plan/Lab Results: Orders Category Date Time Status Cardiac Monitoring DIRECTED Care 12/18/16 20:25 Active Finger Stick Blood Sugar (ED) DIRECTED Care 12/18/16 20:25 Active Misc. NRSG Communication Order DIRECTED Care 12/18/16 20:25 Active Oxygen Therapy- ED Nursing DIRECTED Care 12/18/16 20:25 Active Saline Loc NOW Care 12/18/16 20:25 Active CHEST-PORTABLE [RAD] Stat Exams 12/18/16 20:25 Taken HEAD W/O CONTRAST [CT] Stat Exams 12/18/16 20:25 Completed CBC WITH ELECTRONIC DIFF [HEME] Stat Lab 12/18/16 20:25 Uncollected COMPREHENSIVE METABOLIC PANEL [CHEM] Stat Lab 12/18/16 20:25 Uncollected PROTIME WITH INR [COAG] Stat Lab 12/18/16 20:25 Uncollected PTT [COAG] Stat Lab 12/18/16 20:25 Uncollected TROPONIN T Stat Lab 12/18/16 20:25 Uncollected URINALYSIS W/POSS RFLX CULT-1 [URINALYSIS] Stat Lab 12/18/16 20:25 Uncollected URINE DRUG SCREEN Stat Lab 12/18/16 20:25 Uncollected EKG [EKG] Stat Ther 12/18/16 20:25 Ordered Result Diagrams: 12/18/16 20:50 12/18/16 20:50 - XRAY 1 XRAY Study: Chest XRAY Interpretation: CMG, atelectasis (hcb) - CT/MRI 1 CT Study: Head Impression: See EMR Report CT Results: right sphenoid sinuisitis otherwise NAD (RAD) - CONSULTS/PCP/HOSPITALIST Notification #1 *Consult/PCP/Hospitalist*: akinsoto Time Discussed: 21:20 Consult Disposition: Will see in ED, Admit Departure - Departure Date of Disposition Decision: 12/18/16 Time of Disposition Decision: 21:57 DIAGNOSIS: Respiratory acidosis Disposition: ADMITTED INPATIENT 09 Certified Medical Emergency: Emergent Condition: Good Referrals and Follow-Ups: None,PCP [Primary Care Provider] - - Critical Care Note This patient required my direct & personal management of CC.: Yes Total Time (mins): 40 Critical Care Statement: This patient required my direct personal management to treat or rule out processes, the absence of which, could potentiallly result in sudden, clinically significant life or limb threatening deterioration. Attestation - Physician/ DEBRA Attestation Patient care was provided by Advanced Practice Provider:: Yes Advanced Practice Provider:: Sol Hernández Advanced Practice Provider documentation review:: The Mid-level provider documentation, treatment plan and medical decision making was reviewed by the physician who agrees with all treatment and medical decision making by the MLP.
--- NOTE | 2016-12-18 20:49 | Diag Imaging Result Doc PS360 ---
EXAM: CHEST-PORTABLE HISTORY: stroke like symptoms TECHNIQUE: Erect AP portable chest at 2043 COMMENT: The inspiration is suboptimal. There is bibasilar subsegmental atelectasis. Otherwise has been no significant change since 09/08/2016. IMPRESSION: Poor inspiration and questionable bibasilar basilar atelectasis. Electronically signed by Miguel Ryder 12/18/2016 8:46 PM
[2016-12-18 20:55] LABS: ALLEN TEST YES; BE 0.4 mmoll (-3.0-3.0); BLOOD TYPE ARTERIAL; DRAW SITE R RADIAL; METHB 1.1 % (0.0-1.5); MODALITY CANNULA; O2(CT) 14.3 mL/dL (15.0-23.0); PO2(98.6) 65 mmHg (60-100); SAMPLE BLOOD; SAO2 93.9 % (95.0-100.0); THB 11.1 g/dL (11.5-17.4)
[2016-12-18 20:57] LABS: PCO2(98.6) 56 mmHg (35-45)
[2016-12-18] MEDS ORDERED: NS 500 ML IV ONE (21:01)
[2016-12-18] MEDS ORDERED: TYLENOL PR ONE (21:02)
[2016-12-18 21:12] LABS: URINE CULTURE NEEDED? NO; URINE MICRO REVIEW NEEDED? NO; URINE SOURCE CATH
[2016-12-18 21:20] LABS: UR EPITHELIAL CELLS <10 /HPF (<10); URINE BACTERIA NEGATIVE /HPF; URINE RBC <10 /HPF (<10); URINE WBC <10 /HPF (<10)
[2016-12-18 21:27] LABS: INR 1.02; PROTIME 10.7 Seconds (9.2-11.7); PTT 24.4 Seconds (22.0-36.0)
[2016-12-18 21:28] LABS: BILIRUBIN URINE SMALL (NEGATIVE); BLOOD URINE NEGATIVE (NEGATIVE); COLOR YELLOW; GLUCOSE URINE NEGATIVE (NEGATIVE); LEUKOCYTES URINE NEGATIVE (NEGATIVE); NITRITE URINE NEGATIVE (NEGATIVE); PROTEIN URINE TRACE mg/dL (NEGATIVE); SP GRAVITY URINE 1.026; TURBIDITY URINE CLEAR (CLEAR); UROBILINOGEN URINE 3 mg/dL (NORMAL)
[2016-12-18 21:28] LABS: BASO% 0.1 % (0.0-0.8); EOS# 0.03 X1000 (0.0-0.7); EOS% 0.4 % (0.0-10.0); HEMATOCRIT 36.6 % (42.0-52.0); HEMOGLOBIN 11.5 g/dL (14.0-18.0); IMM GRAN# 0.02 X1000 (0.0-0.04); IMM GRAN% 0.3 % (0.0-0.5); LYMPH# 0.26 X1000 (1.2-3.4); LYMPH% 3.6 % (20.5-51.1); MANUAL DIFF NEEDED? NO; MCH 26.9 PG (27-31); MCHC 31.4 g/dL (33-37); MCV 85.7 FL (81-99); MONO# 0.49 X1000 (0.11-0.59); MONO% 6.8 % (1.7-9.3); NEUT% 88.8 % (42.2-75.2); PLT 99 X1000 (130-400); RBC 4.27 XMIL (4.7-6.1)
[2016-12-18 21:35] LABS: UR AMPHETAMINES QUAL NONE DETECTED (NONE DETECT); UR BARBITUATES QUAL NONE DETECTED (NONE DETECT); UR BENZODIAZEPIN QUAL NONE DETECTED (NONE DETECT); UR CANNABINOIDS QUAL NONE DETECTED (NONE DETECT); UR COCAINE QUAL NONE DETECTED (NONE DETECT); UR METHADONE QUAL NONE DETECTED (NONE DETECT); UR OPIATES QUAL NONE DETECTED (NONE DETECT); UR OXYCODONE QUAL NONE DETECTED (NONE DETECT); UR PCP QUAL NONE DETECTED (NONE DETECT)
[2016-12-18 21:41] LABS: ALBUMIN 3.5 g/dL (3.5-5.0); CALCIUM 8.4 mg/dL (8.8-10.2); POTASSIUM 4.5 mmol/L (3.5-5.1); TOTAL BILIRUBIN 0.62 mg/dL (0.20-1.00); TOTAL PROTEIN 7.1 g/dL (6.3-8.3)
[2016-12-18] MEDS ORDERED: LANOXIN IV ONE (22:26)
[2016-12-18] MEDS ORDERED: NS 1,000 ML IV ONE (23:26)
[2016-12-18] MEDS ORDERED: SODIUM CHLORIDE 0.9% INJ ONE (23:26)
[2016-12-18] MEDS ORDERED: ZOFRAN IV PRN (23:26)
[2016-12-18] MEDS: DUONEB (A & A) INH SCH (23:40)
--- NOTE | 2016-12-18 23:47 | HISTORY AND PHYSICAL ---
REASON FOR ADMISSION: Increased lethargy and somnolence over the last 10 hours. HISTORY OF PRESENT ILLNESS: Mr. Zofia Denson is an 80-year-old male with a past medical history of type 2 diabetes, chronic venous insufficiency, hypertension, atrial fibrillation, anemia of chronic disease, and unspecified congestive heart failure. He also has a history of diabetic neuropathy. The patient was brought in today because he was found very somnolent and near unresponsive by his son, 4 hours after he should have gotten home. The patient was parked in front of his house, and he had just dropped off his sister at 2:30 p.m. By 6 p.m., his son was wondering where he was. When he went outside, he saw the car parked in from the house, and his dad was in a car very somnolent, difficult to arouse. When he did arouse his dad, his dad's speech was very slurred. He was very confused, not making much sense. He noticed that his dad was pale, diaphoretic, and was slightly tremulous. Checked his blood sugars, the blood sugar was 150. He then called EMS, and they brought him to the hospital to be evaluated. To the best of his son's ability, he is not aware that his dad had any change in his medications or recent pain medication or sedative medications. Over a week ago, he had a venous ablation done to his right leg by Dr. Shaun Camacho. Even at his followup, which was less than a week ago, they did venous Doppler studies of his legs, and according to the son were negative. His other son who is at bedside informed me that early this morning the patient's sister informed him that his dad had been very lethargic, a little confused, and very somnolent. They both informed me that over the last several weeks, the patient has been having frequent daytime naps, and he falls asleep very easily. They do no report any cardiorespiratory complaints prior to this event. No vomiting or diarrhea to the best of their ability. As a matter of fact, other than the increased somnolence, they are not aware of any gross change in his overall clinical health. REVIEW OF SYSTEMS: For obvious reasons, limited, due to the patient's current cognitive state. ALLERGIES: No known allergies. MEDICATIONS: 1. He is on aspirin 81 mg daily. 2. Diclofenac 50 mg b.i.d. 3. Cardizem CD 240 mg daily. 4. Lasix 80 mg daily. 5. Gabapentin 200 mg b.i.d. 6. Cozaar 25 mg daily. 7. Metformin 500 mg b.i.d. 8. Omeprazole 20 mg b.i.d. 9. Potassium chloride 20 mEq daily. 10. Januvia 50 mg daily. PAST SURGICAL HISTORY: Reviewed with son. Patient had exploratory laparotomy of lesions, hernia repair, cholecystectomy, and recently in the last 2 weeks, a vein ablation. FAMILY HISTORY: Notable for heart disease, congestive heart failure. SOCIAL HISTORY: Patient lives alone, but next to his son. No smoking, drinking, or use of drugs currently. LABORATORY WORK: EKG reviewed by me showed questionable Q-waves in the septal leads, sinus tachycardia with left axis deviation. Chest x-ray showed anterior chest film with increased vascular markings. Although, poor inspiratory effort and poor penetration noted. CT head showed no acute bleed, showed sphenoid sinusitis. Urine drug screen was negative. White count 7000, hemoglobin and hematocrit 11 and 36, platelets 99,000. Lactate is normal. Differential is 88% neutrophils, BUN is 24, creatinine 1.3. GFR 53. Glucose 120. AST 44, ALT 32, troponin 0.022. PTT is normal. Urine drug screen is negative. Urinalysis is also negative for any gross abnormality. pH 7.30, pCO2 56, PO2 65. This was drawn on 4 L. PHYSICAL EXAMINATION: VITAL SIGNS: Temperature is 101.7 degrees, pulse rate 128, respirations 14, blood pressure is 134/70. He was 75% on room air when he came in. GENERAL: Morbidly obese, elderly man, who is not in acute respiratory distress. He is difficult to arouse and is heavily somnolent. Even with sternal rub, he barely opens his eyes. HEENT: Head is normocephalic, atraumatic. Eyes OBED, EOMI. He is anicteric, not pale. Pupils are 2 mm, reactive. ENT and oropharynx exam could not be fully evaluated, but visually there is no evidence of central cyanosis. NECK: Short and thick. No JVD or carotid bruit. No thyromegaly. CHEST: Decreased entry in the bases. A few scattered wheezes. CARDIOVASCULAR: First and second heart sounds are heard. No gallops. A 2/6 ejection systolic murmur, loudest in the aortic area. Rhythm is regular. ABDOMEN: Protuberant, soft, nontender. No splenomegaly. Bowel sounds are hypoactive. RECTAL: Deferred at this time. EXTREMITIES: There is 1+ pitting edema in his lower extremities, but distally the extremities are warm to touch. Pulses distally. No clubbing or peripheral cyanosis. NEUROLOGICAL: When sternal rub is applied intensively, he moved his arms and legs. I cannot visualize any gross motor deficits at this time. SKIN: Intact. No breakdown or lesions are seen. MUSCULAR: Exam is grossly normal. ASSESSMENT: 1. Toxic/metabolic encephalopathy, secondary to respiratory failure. 2. Acute on chronic respiratory failure with hypercapnia. 3. Diastolic heart failure. 4. Anemia of chronic disease. 5. Type 2 diabetes. 6. Stage II kidney chronic kidney disease. 7. Hypertension. 8. Chronic venous insufficiency. 9. Reflux disease. PLAN: 1. At this time, the patient will be started on a BiPAP machine to correct respiratory indices. I believe the patient has respiratory acidosis, which I suspect could be probably acute in nature. His bicarbonate and his chemistry, and his blood gasses are within normal limits, suggesting that this is something probably acute. However, I do suspect that the patient may have underlying non anion gap metabolic acidosis since the bicarbonate is somewhat normal. No reported evidence of renal tubular problems or diarrhea. 2. We will hydrate patient cautiously. The patient's PESI score is 202, which suggests that he is a high risk of having a pulmonary embolism, especially since he has had work done on his lower extremity. We will order a CT scan after hydrating the patient. Then later in the morning, we will diurese him because of the potential risk of him going into pulmonary edema. Check films later tomorrow. At this point in time, even though he has a temperature, I do not see any obvious focus of infection. Follow up chest x-ray may yield an infiltrate, in which case one should suspect aspiration pneumonia. 3. Deep venous thrombosis prophylaxis with Lovenox. Pending CTA of the chest. We will start patient on sliding scale for now. Withhold any [employer] active medications. 4. The patient will be transferred to the ICU. Total critical care time was 40 minutes. cc: Saira Rivera MD
[2016-12-19 00:13] LABS: ALLEN TEST YES; BLOOD TYPE ARTERIAL; DRAW SITE R RADIAL; METHB 1.1 % (0.0-1.5); MODALITY BI PAP; O2(CT) 13.1 mL/dL (15.0-23.0); PO2(98.6) 92 mmHg (60-100); SAMPLE BLOOD; SAO2 98.2 % (95.0-100.0); THB 9.6 g/dL (11.5-17.4); pH(98.6) 7.33 (7.35-7.45)
[2016-12-19 00:14] LABS: PCO2(98.6) 52 mmHg (35-45)
[2016-12-19] MEDS ORDERED: NS 250 ML IV ONE (00:18)
[2016-12-19] MEDS ORDERED: LEVOPHED 8 MG in D5 1/2 NS 250 ML IV SCH (00:30)
[2016-12-19] MEDS: LOVENOX SUBQ SCH ×2 (00:30→23:15)
[2016-12-19 00:45] LABS: HEMOGLOBIN A1C 5.7 % (4.8-6.0)
[2016-12-19] MEDS: DUONEB (A & A) INH SCH ×4 (03:02→19:21)
[2016-12-19 04:37] LABS: ALLEN TEST YES; BE 0.4 mmoll (-3.0-3.0); BLOOD TYPE ARTERIAL; DRAW SITE R RADIAL; METHB 0.6 % (0.0-1.5); O2(CT) 12.9 mL/dL (15.0-23.0); PO2(98.6) 86 mmHg (60-100); SAMPLE BLOOD; SAO2 98.2 % (95.0-100.0); THB 9.4 g/dL (11.5-17.4); pH(98.6) 7.31 (7.35-7.45)
[2016-12-19 04:39] LABS: MODALITY BI PAP; PCO2(98.6) 54 mmHg (35-45)
[2016-12-19] MEDS: LASIX IV SCH ×2 (05:03→17:19)
[2016-12-19 05:29] LABS: ALBUMIN 2.7 g/dL (3.5-5.0); CALCIUM 7.8 mg/dL (8.8-10.2); TOTAL BILIRUBIN 0.55 mg/dL (0.20-1.00); TOTAL PROTEIN 5.7 g/dL (6.3-8.3)
[2016-12-19 05:39] LABS: BASO% 0.1 % (0.0-0.8); EOS# 0.01 X1000 (0.0-0.7); EOS% 0.1 % (0.0-10.0); HEMATOCRIT 30.3 % (42.0-52.0); HEMOGLOBIN 9.3 g/dL (14.0-18.0); IMM GRAN# 0.05 X1000 (0.0-0.04); IMM GRAN% 0.5 % (0.0-0.5); LYMPH# 0.31 X1000 (1.2-3.4); LYMPH% 3.3 % (20.5-51.1); MANUAL DIFF NEEDED? YES; MCH 26.7 PG (27-31); MCHC 30.7 g/dL (33-37); MCV 87.1 FL (81-99); MONO# 0.65 X1000 (0.11-0.59); MPV 10.8 FL (7.4-10.4); PLT 85 X1000 (130-400); RBC 3.48 XMIL (4.7-6.1)
[2016-12-19] MEDS: HUMALOG SUBQ SCH ×4 (06:03→20:16)
--- NOTE | 2016-12-19 07:14 | Diag Imaging Result Doc PS360 ---
ANGIOGRAM/PULMONARY ARTERIES - 12/18/2016 INDICATION: PE TECHNIQUE: Axial CT images were obtained after administering intravenous contrast. Coronal MIP images were generated. A CT dose reduction protocol was used. COMPARISON: Prior chest x-rays FINDINGS: There is no pulmonary embolism. Heart and great vessels are grossly normal. There is stable left hemidiaphragm elevation with adjacent atelectasis. There is some dependent atelectasis in the right lower lobe. No evidence of pneumonia. There is splenomegaly. The spleen measures about 18.5 x 6.5 cm. There are moderate degenerative changes of the spine. No acute or suspicious bony lesion. IMPRESSION: Splenomegaly. No acute disease. Electronically signed by Lance Hernandez 12/19/2016 7:11 AM
--- NOTE | 2016-12-19 07:21 | Diag Imaging Result Doc PS360 ---
EXAM: CHEST-PORTABLE INDICATION: CHF?? TECHNIQUE: One view COMPARISON: 12/18/2016 FINDINGS: Inspiration is suboptimal. Subsegmental atelectasis at the lung bases is again noted. It may have improved slightly on the left. No definite new consolidations are appreciated. Cardiac silhouette is stable. IMPRESSION: Suggestion of slight improvement of atelectasis at the left lung base. Otherwise, essentially stable. Electronically signed by Khalif Rowan 12/19/2016 7:19 AM
[2016-12-19 07:35] LABS: BANDS 10 % (0-1); LYMPHS 6 % (21-51); MONO 6 % (1-9)
--- NOTE | 2016-12-19 07:58 | CONSULTATION ---
DATE OF CONSULTATION: 12/19/2016 REFERRING PHYSICIAN: Dr. Rivera. CHIEF COMPLAINT: Increased lethargy and somnolence. HISTORY OF PRESENT ILLNESS: This is an 80-year-old, male with a past medical history of diabetes, chronic venous insufficiency, hypertension, atrial fibrillation, anemia of chronic disease, and unspecified congestive heart failure who presented to the hospital with increased lethargy and somnolence over the last day. The family states that he was difficult to arouse. Therefore, he was brought to the hospital. He has been admitted to the ICU for evaluation of his acute respiratory failure. REVIEW OF SYSTEMS: Unable to obtain. ALLERGIES: No known drug allergies. PAST MEDICAL HISTORY: As mentioned in the HPI, otherwise noncontributory. PAST SURGICAL HISTORY: Exploratory laparotomy of lesions, hernia repair, cholecystectomy, and ablation. FAMILY HISTORY: Notable for heart disease and CHF. SOCIAL HISTORY: The patient lives at home alone. Denies use tobacco, alcohol, or illicit drugs. ACTIVE MEDICATIONS: DuoNeb, aspirin, Lovenox, Lasix, Humalog, Zofran, Protonix. PHYSICAL EXAMINATION: Vital Signs: Temperature 97.7, heart rate 93, respiratory rate 13, blood pressure 111/47, oxygen saturation 97%. General: Lying in bed, difficult to arouse. No acute distress noted. HEENT: Normocephalic and atraumatic. PERRL. Cardiovascular: S1 and S2 present. A 2/6 ejection systolic murmur. Chest: Reduced entry. Abdomen: Protuberant. Bowel sounds hypoactive in all quadrants. Extremities: There is +1 pedal edema noted. Neurologic: No obvious gross motor deficits. LABS AND INVESTIGATIONS: WBCs 9.33, RBCs 3.4, hemoglobin 9.3, hematocrit 30.3, platelet count 85,000. Sodium 139, potassium 5, chloride 105, CO2 25, anion gap 9, BUN 26, creatinine 1.2, glucose 118. Blood gas reveals a pH of 7.31, pCO2 of 54, PO2 of 86, HC03 of 25.2, base excess of 0.4, saturated oxygen 98. Chest x-ray performed on 12/19/2016 shows suggestion of slight improvement of atelectasis at the left lung base, otherwise stable chest. ASSESSMENT AND PLAN: This is an 80-year-old, male with a past medical history as mentioned in the history of present illness who was brought to the hospital for increased lethargy and somnolence. He was admitted to the intensive care unit for evaluation of his acute respiratory failure. This is likely the cause of his metabolic encephalopathy. Atelectasis. Continue inhaled bronchodilators, deep venous thrombosis and gastrointestinal prophylaxis, pattern fingersticks with sliding scale insulin for diabetes. We will check a pulmonary embolism study. Further recommendations pending diagnostic studies. Thank you for the courtesy of this consult. Dictated by JORGE Cameron for Pennie Kahn MD cc: JORGE Cameron MD MTDD
[2016-12-19] MEDS: PROTONIX IV SCH (08:10)
[2016-12-19] MEDS: ASPIRIN EC PO SCH ×2 (08:11→20:15)
[2016-12-19] MEDS ORDERED: VANCOMYCIN IV PER PHARMACY MISC SCH (09:15)
[2016-12-19] MEDS: NS 1,000 ML IV SCH ×2 (09:24→23:15)
--- NOTE | 2016-12-19 09:52 | PROGRESS NOTE ---
DATE: 12/19/2016 SUBJECTIVE: Patient is still lethargic and wearing a BiPAP mask. He does not answer questions appropriately. OBJECTIVE: Vital Signs: Temperature 98.1, heart rate 94, respiratory rate 10, blood pressure 107/54, O2 saturation 96% on BiPAP machine. General Examination: This is an 80-year-old male, lying in bed, using a BiPAP machine, lethargic. HEENT: Head is normocephalic, atraumatic. Anicteric sclerae and pale conjunctivae. Mucous membranes moist. Neck: Supple. No JVD noted. No carotid bruits. No lymphadenopathy. No thyromegaly. Cardiovascular: S1, S2 heard. No gallops or rubs. There is a 2 to 3/6 systolic murmur in the aortic area. Respiratory: Decreased air entry globally with a few scattered wheezes. The patient is not using any accessory muscles or having work of breathing. Abdomen: Protuberant, soft. Nontender to palpation. Nondistended. Bowel sounds present. No organomegaly. Extremities: There is 1+ pitting edema in both lower extremities. Neurological: Patient is lethargic but awakens to verbal stimuli. He moves 4 extremities spontaneously. LABORATORY DATA: CBC is okay. ABG shows pH 7.31, pCO2 54, PO2 86. BMP unremarkable with BUN 26. ASSESSMENT: 1. Toxic/metabolic encephalopathy secondary to acute hypercapnic respiratory failure. 2. Acute on chronic respiratory failure with hypercapnia. 3. Anemia of chronic disease. 4. Diastolic heart failure. 5. Diabetes type 2. 6. Stage 1 chronic kidney disease. 7. Hypertension. PLAN: Patient was admitted to the hospital because of elevation of CO2 and patient was lethargic. The patient has been on BiPAP since admission last night and unfortunately the CO2 level is still kind of the same, in the low 60s. We are going to continue providing BiPAP machine. basically was negative. The ABG also shows respiratory acidosis. We will continue also with the breathing treatments. Also for diastolic heart failure, we are going to continue with the same home medications. For diabetes, glucose so far is well-controlled. There was also a suspicion for pulmonary embolism and the CT angio of the chest shows splenomegaly but no acute disease. For the rest of the medical conditions, we are going to continue with the same management. Because I prefer to keep this patient in the intensive care unit. cc: Gary Pettit MD
[2016-12-19] MEDS: STERILE WATER INJ. INJ PRN (10:44)
[2016-12-19] MEDS: GEODON IM PRN (10:44)
[2016-12-19] MEDS ORDERED: VANCOMYCIN 2,500 MG in NS 500 ML IV ONE (11:00)
[2016-12-20] MEDS: GEODON IM PRN (00:50)
[2016-12-20] MEDS: STERILE WATER INJ. INJ PRN (01:21)
[2016-12-20] MEDS: DUONEB (A & A) INH SCH ×4 (03:09→21:01)
[2016-12-20 04:08] LABS: ALLEN TEST YES; BE 2.1 mmoll (-3.0-3.0); BLOOD TYPE ARTERIAL; DRAW SITE R RADIAL; METHB 0.7 % (0.0-1.5); PCO2(98.6) 49 mmHg (35-45); PO2(98.6) 78 mmHg (60-100); SAMPLE BLOOD; SAO2 97.3 % (95.0-100.0); THB 14.2 g/dL (11.5-17.4); pH(98.6) 7.37 (7.35-7.45)
[2016-12-20 04:10] LABS: MODALITY BI PAP
[2016-12-20] MEDS: HUMALOG SUBQ SCH ×4 (06:03→21:13)
[2016-12-20] MEDS: LASIX IV SCH ×2 (06:03→19:35)
[2016-12-20] MEDS: ASPIRIN EC PO SCH ×2 (08:33→21:14)
[2016-12-20] MEDS: PROTONIX IV SCH (08:33)
[2016-12-20] MEDS: VANCOMYCIN 2,000 MG in NS 500 ML IV SCH (10:09)
[2016-12-20] MEDS ORDERED: TYLENOL PO PRN (11:31)
--- NOTE | 2016-12-20 13:16 | PROGRESS NOTE ---
DATE: 12/20/2016 SUBJECTIVE: Patient today is more alert and awake. He knows where he is. He is not complaining of anything at this time. OBJECTIVE: Vital Signs: Temperature 98.2 degrees, heart rate 110, respiratory rate 16, blood pressure 119/61, O2 saturation 99% on 4 L nasal cannula. General Examination: This is an 80-year- old, male, chronically ill-looking lying in bed, in no acute distress. HEENT: Head is normocephalic, atraumatic. Anicteric sclerae and pale conjunctivae. Mucous membranes moist. Neck: Supple. No JVD noted. No carotid bruits. No lymphadenopathy. No thyromegaly. Cardiovascular: S1, S2 heard. No gallops or rubs. There is 3/6 systolic murmur in the aortic area. Respiratory: Decreased air entry globally. Still few scattered wheezing noted. Patient is not using any accessory muscles or having work of breathing. Abdomen: Protuberant, soft, nontender to palpation. Nondistended. Bowel sounds present. No organomegaly. Extremities: 1+ pitting edema in both lower extremities. Neurological: Patient is more alert and awake. Moves 4 extremities. LABORATORY DATA: White cell count 9.33, hemoglobin 9.3, hematocrit 30.3, platelets 95,000. ABG that shows pH 7.37, pCO2 49. No BMP from today but renal function from yesterday was normal. ASSESSMENT AND PLAN: 1. Acute hypercapnic respiratory failure. 2. Metabolic encephalopathy secondary to condition 1. 3. Anemia of chronic disease. 4. Diastolic heart failure. 5. Diabetes mellitus type 2. 6. Stage 1 chronic kidney disease. 7. Hypertension. PLAN: Patient was admitted to the hospital because of altered mental status secondary to acute hypercapnic respiratory failure. This condition is resolving slowly. Today he is more alert and awake and his CO2 dropped to 49. In any case, the patient is more alert. He is still requiring 4 L of oxygen by nasal cannula. At this point, we are going to continue with BiPAP as needed. We are going to transfer this patient to a regular room. For anemia of chronic disease the hemoglobin is stable. For diastolic heart failure this condition is stable as well and we will continue giving him home medications for decreased air entry. Glucose is well controlled because the hemoglobin A1c is 5.7. For stage 1 chronic kidney disease we are going to monitor this by doing BMP daily. For hypertension, we are going to continue with the same management because the blood pressure is between 100 and 110. cc: Gary Pettit MD
[2016-12-20] MEDS: NS 1,000 ML IV SCH (14:02)
[2016-12-20] MEDS ORDERED: CALMOSEPTINE OINTMENT TOP PRN (15:36)
[2016-12-20] MEDS: CARDIZEM CD PO SCH (19:44)
[2016-12-20] MEDS: LOVENOX SUBQ SCH ×2 (21:14→22:49)
[2016-12-21] MEDS: NS 1,000 ML IV SCH ×2 (00:33→22:16)
[2016-12-21] MEDS: DUONEB (A & A) INH SCH ×4 (03:01→21:34)
[2016-12-21] MEDS: HUMALOG SUBQ SCH ×4 (06:32→21:50)
[2016-12-21] MEDS: LASIX IV SCH ×2 (06:32→18:32)
[2016-12-21] MEDS: VANCOMYCIN 2,000 MG in NS 500 ML IV SCH (11:29)
[2016-12-21] MEDS: ASPIRIN EC PO SCH ×2 (11:30→21:50)
[2016-12-21] MEDS: PROTONIX IV SCH (11:30)
[2016-12-21] MEDS: COZAAR PO SCH (11:30)
[2016-12-21] MEDS: CARDIZEM CD PO SCH (11:30)
--- NOTE | 2016-12-21 15:35 | PROGRESS NOTE ---
DATE: 12/21/2016 SUBJECTIVE: Patient is definitely more alert and awake yesterday. No complaints at this time. OBJECTIVE: Vital Signs: Temperature 98.6, heart rate 102, respiratory 20, blood pressure 128/64, O2 saturation 97% on 4 L nasal cannula. General Examination: This is an 80-year-old morbidly obese male lying in bed in no acute distress. HEENT: Head is normocephalic, atraumatic. Neck: Supple. No JVD noted. Cardiovascular: S1, S2 heard. No murmurs, gallops, or rubs. Regular rate and rhythm. Respiratory: Clear bilaterally to auscultation. No work of breathing or using accessory muscles. Decreased air entry globally. Abdomen: Protuberant, soft, nontender to palpation. Nondistended. Bowel sounds present. No organomegaly. Extremities: 1+ pitting edema in both lower extremity with signs of chronic venous insufficiency. Neurological: Patient is alert and awake moves 4 extremities. LABORATORY DATA: Reviewed. ASSESSMENT AND PLAN: 1. Acute hypercapnic respiratory failure. 2. Metabolic encephalopathy secondary to condition #1. 3. Anemia chronic disease. 4. Diastolic heart failure. 5. Diabetes mellitus type 2. 6. Stage 1 chronic kidney disease. 7. Hypertension. PLAN: Patient is definitely more stable. When he was admitted to the hospital he was lethargic and the CO2 was elevated. He has been on bivalve for 2 days and after that this patient is more definitely much better. Altered mental status completely resolved. We are using BiPAP as needed. Is requiring oxygen and I guess he will need oxygen at home. For rest medical conditions we are going to continue with the same management. Currently physical therapy working with this patient and patient has home health services already set up. Will keep it till tomorrow and if he is doing okay will definitely discharge him. cc: Gary Pettit MD
[2016-12-21] MEDS: LOVENOX SUBQ SCH ×2 (21:50→23:07)
[2016-12-22] MEDS: DUONEB (A & A) INH SCH ×3 (03:55→15:48)
[2016-12-22] MEDS: NS 1,000 ML IV SCH (05:08)
[2016-12-22] MEDS: LASIX IV SCH (05:26)
[2016-12-22] MEDS: HUMALOG SUBQ SCH ×2 (06:21→11:51)
[2016-12-22] MEDS ORDERED: SODIUM CHLORIDE 0.9% 10 ML ONE (06:57)
[2016-12-22] MEDS: CARDIZEM CD PO SCH (11:48)
[2016-12-22] MEDS: COZAAR PO SCH (11:49)
[2016-12-22] MEDS: ASPIRIN EC PO SCH (11:49)
--- NOTE | 2016-12-22 13:19 | DISCHARGE SUMMARY ---
ADMISSION DATE: 12/18/2016 DISCHARGE DATE: 12/22/2016 DISCHARGE DIAGNOSES: 1. Acute hypercapnic respiratory failure, resolved. 2. Metabolic encephalopathy secondary to acute hypercapnic respiratory failure, resolved. 3. Anemia of chronic disease, stable. 4. Diastolic heart failure, stable. 5. Diabetes mellitus, type 2. 6. Stage 1 chronic kidney disease. 7. Hypertension. CONSULTATIONS: Pennie Kahn MD from Pulmonary. PROCEDURES: 1. CT angiogram of the chest showed splenomegaly but did not show any pulmonary embolism or no evidence of pneumonia. 2. Head CT showed sinusitis but no signs of acute intracranial abnormality. 3. Chest x-ray done 3 days ago showed slight improvement on atelectasis at the left lung base, otherwise stable. HOSPITAL COURSE: This is an 80-year-old, male with past medical history of diabetes type 2, chronic venous insufficiency. The patient was brought to the emergency department because he was found very somnolent and near unresponsive by his son. Patient evaluated here in the hospital. He was found to have elevated CO2. The patient was admitted to the hospital. The patient was sent to the intensive care unit. Patient was started on BiPAP and after 2 days, the CO2 started coming down. Patient started waking up. Patient was sent to read to a room. The patient was evaluated by physical therapy. He was doing fine with them. Patient has already set up home health services. Patient now is fine, able to walk around with a walker and with assistance. The patient is completely awake and alert. Patient is going to be discharged in stable condition. PHYSICAL EXAMINATION: Vital Signs: Temperature 97.6 degrees, heart rate 107, respiratory rate 16, blood pressure 131/56, O2 saturation 95% on 3 L nasal cannula. General: The patient is an 80-year-old male, lying in bed, in no acute distress. HEENT: Head is normocephalic, atraumatic. Anicteric sclerae and pale conjunctivae. Mucous membranes moist. Neck: Supple. No JVD noted. No carotid bruits. No lymphadenopathy. No thyromegaly. Cardiovascular: S1, S2 heard. No murmurs, gallops, or rubs. Regular rate and rhythm. Respiratory: Clear bilaterally to auscultation. No work of breathing or using accessory muscles. Abdomen: Soft, nontender to palpation. Bowel sounds present. No organomegaly. Extremities: 1+ pitting edema lower extremities. Neurological: Patient alert and oriented x3. Able to move her extremities. Cranial nerves II through XII grossly intact. DISCHARGE DISPOSITION: To home with home health which has already been set up. Follow up with his primary care physician in 2 to 1-2 weeks. MEDICATIONS: 1. Januvia 50 mg 1 tablet p.o. daily. 2. Losartan 25 mg 1 tablet p.o. daily. 3. Omeprazole 20 mg 1 tablet p.o. b.i.d. 4. Metformin ER 500 mg 1 tablet p.o. b.i.d. with meals. 5. Klor-Con 10 mg 2 tablets p.o. daily. 6. Gabapentin 300 mg 1 p.o. b.i.d. 7. Furosemide 40 mg 2 tablets p.o. before meals. 8. Cardizem CD 240 mg 1 tablet p.o. daily. 9. Aspirin 81 mg 1 tablet p.o. daily. DISCHARGE TIME: 36 minutes. cc: Gary Pettit MD MTDD
[2016-12-22 16:18] VITALS: BP 133/66
== END 2016-12-22 16:34 | disposition home health service (06) ==
LOC: ED 20:22 → ICU 22:21 → 4N 12-20 17:39
PROVIDERS: ATTEND Internal Medicine